=== PATIENT | female | born 1950 | race Caucasian/White ===

== ENCOUNTER 2021-01-01 06:52 | Emergency (ER) | payer OTHER ==
[~2021-01-01] VITALS: Ht 160 cm; Wt 77.1 kg
[2021-01-01 07:10] VITALS: BP_SYST 154
[2021-01-01] MEDS ORDERED: BACITRACIN 1 GM OINT TP ONE (07:30)
[2021-01-01] MEDS ORDERED: DIPH-TET-PERTUS Vaccine 0.5 ML VIAL (ADACEL) I.M. ONE (07:30)
[2021-01-01 08:21] VITALS: BP_SYST 144
== END 2021-01-01 08:20 | disposition home or self-care (01) ==
LOC: SED 06:52
DX: S90.02XA Contusion of left ankle, initial encounter (principal); S90.512A Abrasion, left ankle, initial encounter; W22.8XXA Striking against or struck by other objects, initial encounter; Y93.89 Activity, other specified; Y92.89 Other specified places as the place of occurrence of the external cause; Y99.8 Other external cause status
CPT/HCPCS: 90715; 99283